=== PATIENT | male | born 1985 | race African-American/Black ===

== ENCOUNTER 2017-01-03 01:35 | Emergency (ER) | payer OTHER ==
[~2017-01-03] VITALS: Ht 190.5 cm; Wt 154.0 kg
[2017-01-03] MEDS ORDERED: CYCLOBENZAPRINE 10MG TABLET PO ONE (02:15)
[2017-01-03] MEDS ORDERED: IBUPROFEN 600MG TABLET PO ONE (02:15)
[2017-01-03 04:24] VITALS: BP 136/79
== END 2017-01-03 04:31 | disposition home or self-care (01) ==
LOC: ER 01:35
DX: S13.9XXA Sprain of joints and ligaments of unspecified parts of neck, initial encounter (principal); M54.9 Dorsalgia, unspecified; V49.88XA Car occupant (driver) (passenger) injured in other specified transport accidents, initial encounter; Y93.89 Activity, other specified; Y92.89 Other specified places as the place of occurrence of the external cause; Y99.8 Other external cause status
CPT/HCPCS: 72040; 99284